=== PATIENT | female | born 1955 | race Caucasian/White ===

== ENCOUNTER 2016-08-05 07:02 | Inpatient (IN) | payer OTHER ==
[~2016-08-05] VITALS: Ht 162.6 cm; Wt 51.7 kg
[~2016-08-05 07:02] MED LIST: CYCL-10 PO; D-AM10TA2 PO; DONE10TA44 PO; ESTR0.623 PO; HYDR-914 PO; LISI-209 PO; OXYB5TAB11 PO; PROM25TA15 PO; TIZA4TAB4 PO; VAL2 PO; VENL100T2 PO; VENL100T4 PO
[2016-08-05 07:15] VITALS: BP_SYST 127
[2016-08-05] MEDS ORDERED: ONDANSETRON HCL 4 MG/2 ML VIAL IVP ONE (07:45)
[2016-08-05] MEDS ORDERED: MORPHINE 4 MG/ML INJ. SYRINGE IVP ONE (07:45)
[2016-08-05 08:09] LABS: MONOCYTES # (AUTO) 0.4 K/uL (0.0-1.0)
[2016-08-05 08:12] LABS: BASOPHILS % (AUTO) 0.6 % (0.0-2.0); EOSINOPHILS # (AUTO) 0.2 K/uL (0.0-0.4); EOSINOPHILS % (AUTO) 1.9 % (0.0-4.0); HEMATOCRIT 37.8 % (36-48); HEMOGLOBIN 12.4 g/dL (12.0-16.0); LYMPHOCYTES # (AUTO) 2.8 K/uL (1.0-5.5); LYMPHOCYTES % (AUTO) 35.3 % (20.5-51.5); MEAN CORPUSCULAR HEMOGLOBIN 27 pg (27-31); MEAN CORPUSCULAR HGB CONC 33 % (32-36); MEAN CORPUSCULAR VOLUME 82 fL (79.0-98.0); MONOCYTES % (AUTO) 5.3 % (1.7-9.3); NEUTROPHILS # (AUTO) 4.5 K/uL (1.8-7.7); NEUTROPHILS % (AUTO) 56.9 % (40.0-70.0); PLATELET COUNT (AUTO) 362 K/uL (130-430); RED BLOOD CELL COUNT(AUTO) 4.63 MIL/uL (4.2-6.2); RED CELL DISTRIBUTION WIDTH 15.6 % (9.0-15.0); WHITE BLOOD COUNT (AUTO) 7.9 K/uL (4.8-10.8)
[2016-08-05 08:14] LABS: CALCIUM 9.3 mg/dL (8.4-11.0); CREATININE 0.77 mg/dL (0.55-1.30); POTASSIUM 3.8 mmol/L (3.5-5.1)
[2016-08-05 08:53] LABS: BILIRUBIN,URINE NEGATIVE (NEGATIVE); BLOOD, URINE NEGATIVE (NEGATIVE); CLARITY/URINE SL CLOUDY (CLEAR); COLOR,URINE YELLOW (YELLOW); GLUCOSE,URINE NEGATIVE (NEGATIVE); KETONES,URINE NEGATIVE (NEGATIVE); LEUKOCYTE ESTERASE ,URINE 2+ (NEGATIVE); NITRITE, URINE POSITIVE (NEGATIVE); PROTEIN URINE TRACE (NEGATIVE); UROBILINOGEN,URINE 0.2 (0.2-1.0)
[2016-08-05] MEDS ORDERED: cefTRIAXone 1 GM IVPB PREMIX 50 ML IV ONE (09:00)
[2016-08-05 09:10] LABS: BACTERIA,URINE MANY /HPF (None Seen); RBC,URINE 0-3 /HPF (0-3); WBC,URINE 20-50 /HPF (0-3)
[2016-08-05] MEDS ORDERED: LEVOFLOXACIN 500 MG/D5W 100 ML IV ONE (10:45)
[2016-08-05] MEDS ORDERED: PIPERACILLIN/TAZO 4.5 GM in NS 100 ML IV ONE (11:15)
[2016-08-05 12:22] VITALS: BP_SYST 119
[2016-08-05] MEDS: PIPERACILLIN/TAZO 4.5GM/DEX-IS 100 ML IV SCH ×2 (14:52→21:49)
[2016-08-05] MEDS: HYDROmorphone 2 MG/ML VIAL IVP PRN ×2 (14:52→20:12)
[2016-08-05] MEDS ORDERED: OXYBUTYNIN CHLORIDE 5 MG TABLET PO SCH (15:00)
[2016-08-05] MEDS: VANCOMYCIN HCL 750 MG in NS 250 ML IV SCH (15:51)
[2016-08-05] MEDS: CYCLOBENZAPRINE HCL 10 MG TABLET (FLEXERIL) PO SCH ×2 (16:05→21:48)
[2016-08-05 16:24] VITALS: BP_SYST 125
[2016-08-06] MEDS: HYDROmorphone 2 MG/ML VIAL IVP PRN ×4 (00:31→19:51)
[2016-08-06 01:51] VITALS: BP_SYST 140
[2016-08-06] MEDS: VANCOMYCIN HCL 750 MG in NS 250 ML IV SCH ×2 (04:00→16:11)
[2016-08-06] MEDS: PIPERACILLIN/TAZO 4.5GM/DEX-IS 100 ML IV SCH ×2 (05:48→14:58)
[2016-08-06 06:42] VITALS: BP_SYST 131
[2016-08-06 06:54] LABS: BASOPHILS % (AUTO) 0.6 % (0.0-2.0); EOSINOPHILS # (AUTO) 0.2 K/uL (0.0-0.4); EOSINOPHILS % (AUTO) 3.8 % (0.0-4.0); HEMATOCRIT 33.3 % (36-48); HEMOGLOBIN 10.7 g/dL (12.0-16.0); LYMPHOCYTES # (AUTO) 2.4 K/uL (1.0-5.5); LYMPHOCYTES % (AUTO) 42.1 % (20.5-51.5); MEAN CORPUSCULAR HEMOGLOBIN 27 pg (27-31); MEAN CORPUSCULAR HGB CONC 32 % (32-36); MEAN CORPUSCULAR VOLUME 83 fL (79.0-98.0); MONOCYTES # (AUTO) 0.4 K/uL (0.0-1.0); MONOCYTES % (AUTO) 6.9 % (1.7-9.3); NEUTROPHILS # (AUTO) 2.6 K/uL (1.8-7.7); NEUTROPHILS % (AUTO) 46.6 % (40.0-70.0); PLATELET COUNT (AUTO) 266 K/uL (130-430); RED BLOOD CELL COUNT(AUTO) 4.03 MIL/uL (4.2-6.2); RED CELL DISTRIBUTION WIDTH 15.4 % (9.0-15.0); WHITE BLOOD COUNT (AUTO) 5.6 K/uL (4.8-10.8)
[2016-08-06 07:16] LABS: ALBUMIN 3.2 g/dL (3.4-4.8); CALCIUM 8.7 mg/dL (8.4-11.0); CREATININE 0.83 mg/dL (0.55-1.30); POTASSIUM 4.3 mmol/L (3.5-5.1); TOTAL BILIRUBIN 0.3 mg/dL (0.0-1.0); TOTAL PROTEIN, SERUM 6.6 g/dL (6.4-8.3)
[2016-08-06 08:00] VITALS: BP_SYST 127
[2016-08-06] MEDS: CYCLOBENZAPRINE HCL 10 MG TABLET (FLEXERIL) PO SCH (08:10)
[2016-08-06] MEDS ORDERED: DONEPEZIL HCL 5 MG TABLET (ARICEPT) PO SCH (09:00)
[2016-08-06] MEDS ORDERED: [UNRECOGNIZED DRUG - OTHER] PO SCH (09:00)
[2016-08-06] MEDS ORDERED: DEXTROAMPHETAMINE SULFATE PO SCH (09:00)
[2016-08-06] MEDS ORDERED: SENNOSIDES 8.6 MG TABLET PO ONE ×2 (09:15→21:00)
[2016-08-06] MEDS: oxyCODONE HCL 10 MG TAB.ER.12H PO SCH ×2 (10:05→20:29)
[2016-08-06] MEDS: DOCUSATE SODIUM 100 MG CAPSULE PO SCH ×2 (10:05→20:29)
[2016-08-06] MEDS: CARISOPRODOL 350 MG TABLET PO SCH ×3 (10:06→20:29)
[2016-08-06] MEDS: ESTROGENS,CONJUGATED 0.625 MG TABLET PO SCH (10:06)
[2016-08-06] MEDS ORDERED: CEFEPIME 1 GM in D5W 50 ML IV ONE (17:00)
[2016-08-06 17:51] LABS: PROTHROMBIN TIME 11.1 SECS (9.5-12.5)
[2016-08-06 19:50] VITALS: BP_SYST 112
[2016-08-07 01:28] VITALS: BP_SYST 106
[2016-08-07] MEDS: VANCOMYCIN HCL 750 MG in NS 250 ML IV SCH ×2 (02:22→16:08)
[2016-08-07 03:46] VITALS: BP_SYST 111
[2016-08-07] MEDS: HYDROmorphone 2 MG/ML VIAL IVP PRN ×2 (06:10→11:18)
[2016-08-07 07:49] LABS: BASOPHILS % (AUTO) 0.5 % (0.0-2.0); EOSINOPHILS # (AUTO) 0.2 K/uL (0.0-0.4); EOSINOPHILS % (AUTO) 2.8 % (0.0-4.0); HEMOGLOBIN 10.9 g/dL (12.0-16.0); LYMPHOCYTES # (AUTO) 2.8 K/uL (1.0-5.5); LYMPHOCYTES % (AUTO) 34.6 % (20.5-51.5); MEAN CORPUSCULAR HEMOGLOBIN 27 pg (27-31); MEAN CORPUSCULAR HGB CONC 32 % (32-36); MEAN CORPUSCULAR VOLUME 83 fL (79.0-98.0); MONOCYTES # (AUTO) 0.4 K/uL (0.0-1.0); MONOCYTES % (AUTO) 5.5 % (1.7-9.3); NEUTROPHILS # (AUTO) 4.7 K/uL (1.8-7.7); NEUTROPHILS % (AUTO) 56.6 % (40.0-70.0); PLATELET COUNT (AUTO) 282 K/uL (130-430); RED BLOOD CELL COUNT(AUTO) 4.09 MIL/uL (4.2-6.2); RED CELL DISTRIBUTION WIDTH 15.3 % (9.0-15.0); WHITE BLOOD COUNT (AUTO) 8.1 K/uL (4.8-10.8)
[2016-08-07 08:04] LABS: ALBUMIN 3.1 g/dL (3.4-4.8); CALCIUM 8.5 mg/dL (8.4-11.0); CREATININE 0.71 mg/dL (0.55-1.30); POTASSIUM 4.1 mmol/L (3.5-5.1); TOTAL BILIRUBIN 0.2 mg/dL (0.0-1.0); TOTAL PROTEIN, SERUM 6.5 g/dL (6.4-8.3)
[2016-08-07] MEDS: CEFEPIME 1 GM in D5W 50 ML IV SCH ×2 (08:25→21:57)
[2016-08-07] MEDS: oxyCODONE HCL 10 MG TAB.ER.12H PO SCH ×2 (08:26→21:57)
[2016-08-07] MEDS: CARISOPRODOL 350 MG TABLET PO SCH ×3 (08:27→21:57)
[2016-08-07] MEDS: ESTROGENS,CONJUGATED 0.625 MG TABLET PO SCH (08:27)
[2016-08-07] MEDS: DOCUSATE SODIUM 100 MG CAPSULE PO SCH ×2 (08:27→21:57)
[2016-08-07 12:38] VITALS: BP_SYST 123
[2016-08-07 16:55] VITALS: BP_SYST 125
[2016-08-07 20:00] VITALS: BP_SYST 122
[2016-08-08 01:22] VITALS: BP_SYST 150
[2016-08-08] MEDS: VANCOMYCIN HCL 750 MG in NS 250 ML IV SCH ×2 (02:43→15:59)
[2016-08-08 03:49] VITALS: BP_SYST 130
[2016-08-08] MEDS: HYDROmorphone 2 MG/ML VIAL IVP PRN ×4 (07:04→20:14)
[2016-08-08 08:00] VITALS: BP_SYST 130
[2016-08-08] MEDS: CEFEPIME 1 GM in D5W 50 ML IV SCH ×2 (08:56→21:11)
[2016-08-08] MEDS: ESTROGENS,CONJUGATED 0.625 MG TABLET PO SCH (08:56)
[2016-08-08] MEDS: CARISOPRODOL 350 MG TABLET PO SCH ×3 (08:56→21:11)
[2016-08-08] MEDS: DOCUSATE SODIUM 100 MG CAPSULE PO SCH ×2 (08:56→21:11)
[2016-08-08] MEDS: oxyCODONE HCL 10 MG TAB.ER.12H PO SCH ×2 (08:57→21:11)
[2016-08-08 12:30] VITALS: BP_SYST 128
[2016-08-08 16:00] VITALS: BP_SYST 132
[2016-08-08 20:00] VITALS: BP_SYST 135
[2016-08-09 00:22] VITALS: BP_SYST 126
[2016-08-09] MEDS: VANCOMYCIN HCL 750 MG in NS 250 ML IV SCH ×2 (03:06→15:31)
[2016-08-09] MEDS: HYDROmorphone 2 MG/ML VIAL IVP PRN ×4 (03:32→17:54)
[2016-08-09 04:21] VITALS: BP_SYST 127
[2016-08-09 08:00] VITALS: BP_SYST 125
[2016-08-09] MEDS: CEFEPIME 1 GM in D5W 50 ML IV SCH (09:30)
[2016-08-09] MEDS: CARISOPRODOL 350 MG TABLET PO SCH ×2 (09:30→15:30)
[2016-08-09] MEDS: oxyCODONE HCL 10 MG TAB.ER.12H PO SCH (09:31)
[2016-08-09] MEDS: DOCUSATE SODIUM 100 MG CAPSULE PO SCH (09:31)
[2016-08-09] MEDS: ESTROGENS,CONJUGATED 0.625 MG TABLET PO SCH (09:32)
[2016-08-09 12:46] VITALS: BP_SYST 125
[2016-08-09 16:01] VITALS: BP_SYST 132
[2016-08-09 19:53] VITALS: BP_SYST 144
== END 2016-08-09 21:48 | DRG 560 ==
LOC: SED 07:02 → SMU 11:27
PROVIDERS: ADMIT Internal Medicine; ATTEND Internal Medicine
PROC: 02HV33Z Insertion of Infusion Device into Superior Vena Cava, Percutaneous Approach (ICD-10-PCS; principal; 2016-08-07)
PROC: B548ZZA Ultrasonography of Superior Vena Cava, Guidance (ICD-10-PCS; 2016-08-07)
DX: T84.629A Infection and inflammatory reaction due to internal fixation device of unspecified bone of leg, initial encounter (principal); M86.8X7 Other osteomyelitis, ankle and foot; N39.0 Urinary tract infection, site not specified; L03.116 Cellulitis of left lower limb; G82.20 Paraplegia, unspecified; T83.511A Infection and inflammatory reaction due to indwelling urethral catheter, initial encounter; G35 Multiple sclerosis; L89.152 Pressure ulcer of sacral region, stage 2; F32.9 Major depressive disorder, single episode, unspecified; N31.9 Neuromuscular dysfunction of bladder, unspecified; L89.319 Pressure ulcer of right buttock, unspecified stage; M19.90 Unspecified osteoarthritis, unspecified site; Y83.8 Other surgical procedures as the cause of abnormal reaction of the patient, or of later complication, without mention of misadventure at the time of the procedure; G89.4 Chronic pain syndrome; F12.90 Cannabis use, unspecified, uncomplicated; Z80.1 Family history of malignant neoplasm of trachea, bronchus and lung; Z91.013 Allergy to seafood; Z74.01 Bed confinement status; Z99.3 Dependence on wheelchair; Z79.899 Other long term (current) drug therapy; Z87.891 Personal history of nicotine dependence; Z86.14 Personal history of Methicillin resistant Staphylococcus aureus infection; Y92.89 Other specified places as the place of occurrence of the external cause
CPT/HCPCS: 36415; 71010; 80048; 80053; 80202-TC; 81000-TC; 83605; 83735-TC; 85025; 85610-TC; 85651-TC; 85730-TC; 86140; 87040-TC; 87081; 87086; 87186-TC; 96365; 96367; 96375; 99285; A6209; C1751; C1769; J0692; J0696; J1170; J1956; J2270; J2405; J2543; J3370; J7050; J7060

== ENCOUNTER 2016-08-21 15:18 | Emergency (ER) | payer OTHER ==
[~2016-08-21] VITALS: Ht 162.6 cm; Wt 52.2 kg
[~2016-08-21 15:18] MED LIST changes: -DONE10TA44 PO; -LISI-209 PO; -PROM25TA15 PO; -TIZA4TAB4 PO; -VAL2 PO; -VENL100T2 PO; -VENL100T4 PO
[2016-08-21 15:22] VITALS: BP_SYST 152
--- NOTE | 2016-08-21 15:30 | NUR ---
Patient to ER bed 08 to gown for evaluation. Side rails up.
--- NOTE | 2016-08-21 15:31 | NUR ---
Stable, pt states has had "urethra pain" and pain to rectal area since this AM, states had suh catheter removed yesterday, denies any bleeding to area, denies pain w/ urination, urinary frequency/retention or blood in stool. Pt states had toe surgery "months ago", many black wounds & redness noted to bilateral feet/toes, left middle toe has stitches and pin sticking out of end,site not well approximated-open area noted w/ dried blood, no active bleeding. Pt states has missed many follow up appts, had appt today. No other complaints/injuries per pt or noted.
--- NOTE | 2016-08-21 16:05 | NUR ---
Dr. Johnson at bedside for evaluation with female Vernon Rosen
--- NOTE | 2016-08-21 16:15 | NUR ---
Rectal exam performed by Dr. Johnson with self at bedside during procedure. Patient tolerated well. Dr. Johnson removed large amount of light brown formed stool by digital disimpaction-no blood noted. Pt states pain significantly decreased following disimpaction. Addendum: 08/21/16 at [address] Johnson also examined pt's genitalia-slight redness noted, no bleeding/drainage.
--- NOTE | 2016-08-21 16:56 | NUR ---
In and Out catheter with use of sterile technique performed. Immediate return of 100 ml clear yellow urine noted. Urine sample collected and sent to lab. Pt tolerated procedure well.
[2016-08-21 17:44] LABS: BILIRUBIN,URINE NEGATIVE (NEGATIVE); BLOOD, URINE NEGATIVE (NEGATIVE); CLARITY/URINE CLEAR (CLEAR); COLOR,URINE YELLOW (YELLOW); GLUCOSE,URINE NEGATIVE (NEGATIVE); KETONES,URINE TRACE (NEGATIVE); LEUKOCYTE ESTERASE ,URINE NEGATIVE (NEGATIVE); NITRITE, URINE NEGATIVE (NEGATIVE); PROTEIN URINE NEGATIVE (NEGATIVE); UROBILINOGEN,URINE 0.2 (0.2-1.0)
--- NOTE | 2016-08-21 17:45 | NUR ---
# 16 FR Coello catheter with use of sterile technique performed. Immediate return of 550 cc clear yellow urine noted (Dr. Johnson notified). Bedside drainage bag placed below level of bladder. Pt tolerated procedure well-states feels some immediate relief.
[2016-08-21] MEDS ORDERED: NACL 0.9% 1,000 ML IV ONE (17:51)
[2016-08-21] MEDS ORDERED: HYDROmorphone 1 MG INJ. 1 MG/ML AMPUL IVP ONE (18:00)
[2016-08-21] MEDS ORDERED: MORPHINE 4 MG/ML INJ. SYRINGE IVP ONE (18:00)
[2016-08-21] MEDS ORDERED: LORazepam 2 MG/ML VIAL (FOR ER USE) IVP ONE (18:00)
[2016-08-21] MEDS ORDERED: ONDANSETRON HCL 4 MG/2 ML VIAL IVP ONE (18:00)
--- NOTE | 2016-08-21 18:00 | NUR ---
Pt states is not allergic to iodine-has had before w/o complications. Dr. Johnson aware of pt's seafood allergy and situation-to speak w/ radiologist.
[2016-08-21 18:35] LABS: BASOPHILS % (AUTO) 0.2 % (0.0-2.0); EOSINOPHILS % (AUTO) 0.1 % (0.0-4.0); HEMATOCRIT 35.3 % (36-48); HEMOGLOBIN 11.5 g/dL (12.0-16.0); LYMPHOCYTES # (AUTO) 1.5 K/uL (1.0-5.5); LYMPHOCYTES % (AUTO) 13.7 % (20.5-51.5); MEAN CORPUSCULAR HEMOGLOBIN 27 pg (27-31); MEAN CORPUSCULAR HGB CONC 33 % (32-36); MEAN CORPUSCULAR VOLUME 82 fL (79.0-98.0); MONOCYTES # (AUTO) 0.5 K/uL (0.0-1.0); MONOCYTES % (AUTO) 4.7 % (1.7-9.3); NEUTROPHILS # (AUTO) 9.3 K/uL (1.8-7.7); NEUTROPHILS % (AUTO) 81.3 % (40.0-70.0); PLATELET COUNT (AUTO) 290 K/uL (130-430); RED BLOOD CELL COUNT(AUTO) 4.29 MIL/uL (4.2-6.2); RED CELL DISTRIBUTION WIDTH 14.9 % (9.0-15.0); WHITE BLOOD COUNT (AUTO) 11.3 K/uL (4.8-10.8)
[2016-08-21 18:40] LABS: CREATININE 0.62 mg/dL (0.55-1.30); POTASSIUM 3.6 mmol/L (3.5-5.1)
[2016-08-21 18:44] LABS: ALBUMIN 3.6 g/dL (3.4-4.8); TOTAL BILIRUBIN 0.4 mg/dL (0.0-1.0); TOTAL PROTEIN, SERUM 7.5 g/dL (6.4-8.3)
--- NOTE | 2016-08-21 19:00 | NUR ---
Pt stable, alert and oriented x4, states is still having pain following medication admin (takes morphine 8 mg and dilaudid 4mg daily at home)-Dr. Johnson aware.
[2016-08-21] MEDS ORDERED: IOHEXOL 100 ML IV ONE (19:15)
--- NOTE | 2016-08-21 19:26 | NUR ---
Pt was taken for CT via [facility].
--- NOTE | 2016-08-21 19:42 | NUR ---
Pt was in room. Pt had no reaction to iodine.
--- NOTE | 2016-08-21 21:20 | NUR ---
Called daughter [phone] misti pt's discharge home
--- NOTE | 2016-08-21 21:32 | NUR ---
called Brad dang to clarify . spoke to rose DESAI, stated that pt had sign off AMA yesterday 08/20/16 at 8476.
[2016-08-22 00:20] VITALS: BP_SYST 125
--- NOTE | 2016-08-22 00:20 | NUR ---
Patient given written and verbal discharge instructions and verbalizes understanding. ER MD discussed with patient the results and treatment provided. Patient in stable condition. ID arm band removed. IV catheter removed intact and dressing applied, no active bleeding. Rx of lactulose, norco and keflex given. Patient educated on pain management and to follow up with PMD. Pain Scale 0/10. Opportunity for questions provided and answered.
== END 2016-08-22 00:20 | disposition home or self-care (01) ==
LOC: SED 15:18
DX: K56.41 Fecal impaction (principal); R10.9 Unspecified abdominal pain; N36.8 Other specified disorders of urethra; I10 Essential (primary) hypertension; Z86.73 Personal history of transient ischemic attack (TIA), and cerebral infarction without residual deficits; Z90.710 Acquired absence of both cervix and uterus; Z91.013 Allergy to seafood; Z89.422 Acquired absence of other left toe(s)
CPT/HCPCS: 36415; 51702; 74176; 80053; 81003; 81025; 83690; 85025; 96361; 96374; 96375; 99285; J1170; J2060; J2270; J2405; J7030; Q9967

== ENCOUNTER 2016-08-22 21:15 | Emergency (ER) | payer OTHER ==
[~2016-08-22] VITALS: Ht 162.6 cm; Wt 49.9 kg
[2016-08-22 21:17] VITALS: BP_SYST 131
[2016-08-22] MEDS ORDERED: DIPHENHYDRAMINE INJ 50 MG/ML VIAL IM ONE (22:45)
[2016-08-22] MEDS ORDERED: MORPHINE SULFATE 10 MG/ML VIAL IM ONE (22:45)
[2016-08-23] MEDS ORDERED: MORPHINE 4 MG/ML INJ. SYRINGE IM ONE (00:30)
[2016-08-23] MEDS ORDERED: DIPHENHYDRAMINE INJ 50 MG/ML VIAL IM ONE (00:30)
[2016-08-23 02:00] VITALS: BP_SYST 128
== END 2016-08-23 02:00 | disposition home or self-care (01) ==
LOC: SED 21:15
DX: S43.401A Unspecified sprain of right shoulder joint, initial encounter (principal); I10 Essential (primary) hypertension; Z91.013 Allergy to seafood; Z86.73 Personal history of transient ischemic attack (TIA), and cerebral infarction without residual deficits; W05.0XXA Fall from non-moving wheelchair, initial encounter; Y93.89 Activity, other specified; Y92.89 Other specified places as the place of occurrence of the external cause; Y99.8 Other external cause status
CPT/HCPCS: 73030; 96372; 96374; 99284; J1200 ×2; J2270 ×2

== ENCOUNTER 2016-08-23 20:21 | Emergency (ER) | payer OTHER ==
[~2016-08-23] VITALS: Ht 165.1 cm; Wt 49.9 kg
[2016-08-23 20:21] VITALS: BP_SYST 150
--- NOTE | 2016-08-23 20:33 | NUR ---
Placed in room 02 . Placed on cardiac exercise physiologist, blood pressure machine and pulse oximeter. To gown for exam. Side rails up. Report given to GISELLE Smallwood.
[2016-08-23] MEDS ORDERED: NACL 0.9% 1,000 ML IV ONE (20:43)
[2016-08-23] MEDS ORDERED: PROCHLORPERAZINE EDISYLATE 10 MG/2 ML VIAL IVP ONE (20:45)
--- NOTE | 2016-08-23 20:45 | NUR ---
Patient is A & O x 4, Skin is warm, dry and intact. Patient reports diffuse abdominal pain for 2 days with constipation. Pain of 7/10. No other complaints/injuries per patient or as noted
--- NOTE | 2016-08-23 20:47 | NUR ---
Dr. Melvin at bedside
[2016-08-23 21:05] LABS: BASOPHILS # (AUTO) 0.1 K/uL (0.0-0.2); BASOPHILS % (AUTO) 0.7 % (0.0-2.0); EOSINOPHILS % (AUTO) 0.5 % (0.0-4.0); HEMATOCRIT 37.5 % (36-48); HEMOGLOBIN 12.4 g/dL (12.0-16.0); LYMPHOCYTES # (AUTO) 1.9 K/uL (1.0-5.5); LYMPHOCYTES % (AUTO) 21.5 % (20.5-51.5); MEAN CORPUSCULAR HEMOGLOBIN 27 pg (27-31); MEAN CORPUSCULAR HGB CONC 33 % (32-36); MEAN CORPUSCULAR VOLUME 82 fL (79.0-98.0); MONOCYTES # (AUTO) 0.5 K/uL (0.0-1.0); MONOCYTES % (AUTO) 5.2 % (1.7-9.3); NEUTROPHILS # (AUTO) 6.2 K/uL (1.8-7.7); NEUTROPHILS % (AUTO) 72.1 % (40.0-70.0); PLATELET COUNT (AUTO) 324 K/uL (130-430); RED CELL DISTRIBUTION WIDTH 14.4 % (9.0-15.0); WHITE BLOOD COUNT (AUTO) 8.7 K/uL (4.8-10.8)
[2016-08-23 21:12] LABS: PROTHROMBIN TIME 11.2 SECS (9.5-12.5)
--- NOTE | 2016-08-23 21:14 | NUR ---
Patient medicated as ordered, IVF infusing without difficulty. classroom monitor shows sinus rhythm without ectopy
[2016-08-23 21:16] LABS: CREATININE 0.59 mg/dL (0.55-1.30); POTASSIUM 3.7 mmol/L (3.5-5.1)
[2016-08-23 21:21] LABS: ALBUMIN 3.7 g/dL (3.4-4.8); TOTAL BILIRUBIN 0.3 mg/dL (0.0-1.0); TOTAL PROTEIN, SERUM 7.4 g/dL (6.4-8.3)
--- NOTE | 2016-08-23 21:50 | NUR ---
Patient to CT scan in stable condition
--- NOTE | 2016-08-23 22:01 | NUR ---
Patient back from CT scan
[2016-08-23] MEDS ORDERED: LORazepam 2 MG/ML VIAL (FOR ER USE) IVP ONE (23:30)
[2016-08-23] MEDS ORDERED: cloNIDine HCL 0.1 MG TABLET PO ONE (23:45)
--- NOTE | 2016-08-23 23:57 | NUR ---
Ativan did not scan. Verified medication, dosage, and route with full name, date of and allergies. Patient tolerated well.
[2016-08-24] LABS: BILIRUBIN,URINE NEGATIVE (NEGATIVE); BLOOD, URINE NEGATIVE (NEGATIVE); CLARITY/URINE CLEAR (CLEAR); COLOR,URINE YELLOW (YELLOW); GLUCOSE,URINE NEGATIVE (NEGATIVE); KETONES,URINE 2+ (NEGATIVE); LEUKOCYTE ESTERASE ,URINE NEGATIVE (NEGATIVE); NITRITE, URINE NEGATIVE (NEGATIVE); PROTEIN URINE NEGATIVE (NEGATIVE); UROBILINOGEN,URINE 0.2 (0.2-1.0)
[2016-08-24] MEDS ORDERED: KETOROLAC TROMETHAMINE 30 MG VIAL IVP ONE (00:30)
--- NOTE | 2016-08-24 01:58 | NUR ---
Patient resting quietly in nad, vital signs stable, respirations even and unlabored
[2016-08-24 02:46] VITALS: BP_SYST 150
--- NOTE | 2016-08-24 02:48 | NUR ---
Patient given written and verbal discharge instructions and verbalizes understanding. ER MD discussed with patient the results and treatment provided. Patient in stable condition. ID arm band removed. IV catheter removed intact and dressing applied, no active bleeding. No RX given. Patient educated on pain management and to follow up with PMD. Pain Scale 0. Opportunity for questions provided and answered.
== END 2016-08-24 02:48 | disposition home or self-care (01) ==
LOC: SED 20:21
DX: G89.29 Other chronic pain (principal); R10.9 Unspecified abdominal pain; M79.605 Pain in left leg; M79.675 Pain in left toe(s); M54.9 Dorsalgia, unspecified; F11.20 Opioid dependence, uncomplicated; I10 Essential (primary) hypertension; Z86.73 Personal history of transient ischemic attack (TIA), and cerebral infarction without residual deficits; Z91.013 Allergy to seafood
CPT/HCPCS: 36415; 74176; 80053; 81003; 83690; 85025; 85610; 85730; 96361; 96374; 96375; 99285; J0780; J1885; J2060; J7030

== ENCOUNTER 2016-12-13 13:53 | Inpatient (IN) | payer OTHER ==
[~2016-12-13] VITALS: Ht 157.5 cm; Wt 52.2 kg
[2016-12-13] VITALS (13 sets, daily range): BP systolic 106–164
[2016-12-13] MEDS ORDERED: NALOXONE HCL 2 MG/2 ML SYR IVP ONE (14:00)
[2016-12-13 14:13] LABS: BASOPHILS # (AUTO) 0.1 K/uL (0.0-0.2); BASOPHILS % (AUTO) 1.1 % (0.0-2.0); EOSINOPHILS # (AUTO) 0.2 K/uL (0.0-0.4); EOSINOPHILS % (AUTO) 2.1 % (0.0-4.0); HEMATOCRIT 38.8 % (36-48); HEMOGLOBIN 12.3 g/dL (12.0-16.0); LYMPHOCYTES # (AUTO) 1.7 K/uL (1.0-5.5); MEAN CORPUSCULAR HEMOGLOBIN 26 pg (27-31); MEAN CORPUSCULAR HGB CONC 32 % (32-36); MEAN CORPUSCULAR VOLUME 82 fL (79.0-98.0); MONOCYTES # (AUTO) 0.3 K/uL (0.0-1.0); MONOCYTES % (AUTO) 2.9 % (1.7-9.3); NEUTROPHILS # (AUTO) 7.4 K/uL (1.8-7.7); NEUTROPHILS % (AUTO) 75.9 % (40.0-70.0); PLATELET COUNT (AUTO) 477 K/uL (130-430); RED BLOOD CELL COUNT(AUTO) 4.76 MIL/uL (4.2-6.2); RED CELL DISTRIBUTION WIDTH 16.1 % (9.0-15.0); WHITE BLOOD COUNT (AUTO) 9.7 K/uL (4.8-10.8)
[2016-12-13] MEDS ORDERED: GABA-529 PO (14:29)
[2016-12-13] MEDS ORDERED: BUPR-84 PO (14:29)
[2016-12-13] MEDS ORDERED: CEPH-568 PO (14:29)
[2016-12-13] MEDS ORDERED: BACL10TA PO (14:29)
[2016-12-13] MEDS ORDERED: POTASSIUM ER PO (14:29)
[2016-12-13] MEDS ORDERED: DONE5TAB26 PO (14:29)
[2016-12-13 14:31] LABS: ANION GAP 9 (5-15); CALCIUM 8.9 mg/dL (8.4-11.0); CHLORIDE 105 mmol/L (98-107); CREATININE 0.59 mg/dL (0.55-1.30); GLUCOSE 185 mg/dL (70-99); POTASSIUM 3.5 mmol/L (3.5-5.1); SODIUM SERUM 139 mmol/L (136-145); UREA NITROGEN, BLOOD 11 mg/dL (8-21)
[2016-12-13 14:32] LABS: GFR AFRICAN AMERICAN 133 mL/min (>90)
[2016-12-13 14:33] LABS: PROTHROMBIN TIME 9.8 SECS (9.5-12.5)
[2016-12-13 14:36] LABS: ALANINE AMINOTRANSFERASE 14 U/L (12-78); ALBUMIN 3.5 g/dL (3.4-4.8); ASPARTATE AMINOTRANSFERASE 19 U/L (10-37); TOTAL BILIRUBIN 0.2 mg/dL (0.0-1.0)
[2016-12-13 14:38] LABS: ACETAMINOPHEN 7 ug/mL (1-30); ALCOHOL, BLOOD < 3 mg/dL (<10)
[2016-12-13 15:12] LABS: BILIRUBIN,URINE NEGATIVE (NEGATIVE); BLOOD, URINE 1+ (NEGATIVE); CLARITY/URINE HAZY (CLEAR); COLOR,URINE YELLOW (YELLOW); GLUCOSE,URINE NEGATIVE (NEGATIVE); KETONES,URINE NEGATIVE (NEGATIVE); LEUKOCYTE ESTERASE ,URINE 3+ (NEGATIVE); NITRITE, URINE POSITIVE (NEGATIVE); PH,URINE 7.5 (5.0-8.0); PROTEIN URINE 1+ (NEGATIVE); UROBILINOGEN,URINE 0.2 (0.2-1.0)
[2016-12-13 15:23] LABS: BACTERIA,URINE MANY /HPF (None Seen); WBC,URINE >100 /HPF (0-3)
[2016-12-13 15:27] LABS: URINE AMORPHOUS PHOSPHATES 2+ /HPF (None Seen)
[2016-12-13 15:30] LABS: CANNABINOID, URINE POSITIVE (NEG <=50); METHAMPHETAMINES SCREEN,URINE POSITIVE (NEG <=500); OPIATE, URINE POSITIVE (NEG <=100); URINE AMPHETAMINE POSITIVE (NEG <=500); URINE OXYCODONE SCREEN POSITIVE (NEG <=100)
[2016-12-13] MEDS ORDERED: ETOMIDATE 20 MG/ 10 ML VIAL (AMIDATE) IVP ONE ×2 (15:30→17:22)
[2016-12-13] MEDS ORDERED: SUCCINYLCHOLINE CHLORIDE 20 MG/ML(QUELICIN) IVP ONE ×2 (15:30→17:22)
[2016-12-13 15:31] LABS: BARBITURATE, URINE NEGATIVE (NEG <=200); BENZODIAZEPINE, URINE NEGATIVE (NEG <=150); COCAINE, URINE NEGATIVE (NEG <=150); PHENCYCLIDINE SCREEN,URINE NEGATIVE (NEG <=25); UR TRICYCLIC ANTIDEPRESSANTS NEGATIVE (NEG <=300); URINE METHADONE NEGATIVE (NEG <=200); URINE PROPOXYPHENE SCREEN NEGATIVE (NEG <=300)
[2016-12-13] MEDS ORDERED: cefTRIAXone 1 GM IVPB PREMIX 50 ML IV ONE (15:45)
[2016-12-13] MEDS ORDERED: LORazepam 2 MG/ML VIAL IVP PRN (17:30)
[2016-12-13] MEDS ORDERED: IPRATROPIUM BROM 0.5 MG/2.5 ML VIAL.NEB (ATROVENT) INH PRN (17:30)
[2016-12-13] MEDS ORDERED: ALBUTEROL SULFATE 0.083% 2.5 MG/3 ML VIAL.NEB INH PRN (17:30)
[2016-12-13] MEDS ORDERED: cefTRIAXone 1 GM in D5W 50 ML IV SCH (17:45)
[2016-12-13] MEDS: LORazepam 2 MG/ML VIAL IVP PRN ×2 (18:00→22:25)
[2016-12-13] MEDS: IPRATROPIUM BROM 0.5 MG/2.5 ML VIAL.NEB (ATROVENT) INH SCH (20:01)
[2016-12-13] MEDS: ALBUTEROL SULFATE 0.083% 2.5 MG/3 ML VIAL.NEB INH SCH (20:02)
[2016-12-13] MEDS: FAMOTIDINE PF 20 MG/2 ML VIAL IVP SCH (20:48)
[2016-12-14] VITALS (34 sets, daily range): BP systolic 87–147
[2016-12-14] MEDS: IPRATROPIUM BROM 0.5 MG/2.5 ML VIAL.NEB (ATROVENT) INH SCH ×4 (01:25→19:37)
[2016-12-14] MEDS: ALBUTEROL SULFATE 0.083% 2.5 MG/3 ML VIAL.NEB INH SCH ×4 (01:25→19:37)
[2016-12-14] MEDS: D5/0.45 NS 1,000 ML IV SCH ×3 (04:53→16:28)
[2016-12-14] MEDS: NITROGLYCERIN 1 INCH (GM) OINT. TP SCH ×4 (06:09→18:44)
[2016-12-14 06:43] LABS: BASOPHILS # (AUTO) 0.1 K/uL (0.0-0.2); BASOPHILS % (AUTO) 0.6 % (0.0-2.0); EOSINOPHILS # (AUTO) 0.1 K/uL (0.0-0.4); EOSINOPHILS % (AUTO) 0.6 % (0.0-4.0); HEMATOCRIT 41.1 % (36-48); LYMPHOCYTES # (AUTO) 1.7 K/uL (1.0-5.5); LYMPHOCYTES % (AUTO) 13.6 % (20.5-51.5); MEAN CORPUSCULAR HEMOGLOBIN 26 pg (27-31); MEAN CORPUSCULAR HGB CONC 32 % (32-36); MEAN CORPUSCULAR VOLUME 82 fL (79.0-98.0); MONOCYTES # (AUTO) 0.2 K/uL (0.0-1.0); MONOCYTES % (AUTO) 1.6 % (1.7-9.3); NEUTROPHILS # (AUTO) 10.4 K/uL (1.8-7.7); NEUTROPHILS % (AUTO) 83.6 % (40.0-70.0); PLATELET COUNT (AUTO) 465 K/uL (130-430); RED BLOOD CELL COUNT(AUTO) 4.99 MIL/uL (4.2-6.2); RED CELL DISTRIBUTION WIDTH 16.1 % (9.0-15.0); WHITE BLOOD COUNT (AUTO) 12.5 K/uL (4.8-10.8)
[2016-12-14 07:00] LABS: ALBUMIN 2.9 g/dL (3.4-4.8); CALCIUM 8.7 mg/dL (8.4-11.0); CREATININE 0.52 mg/dL (0.55-1.30); POTASSIUM 3.3 mmol/L (3.5-5.1); TOTAL BILIRUBIN 0.2 mg/dL (0.0-1.0)
[2016-12-14] MEDS: cefTRIAXone 1 GM in D5W 50 ML IV SCH (09:13)
[2016-12-14] MEDS: FAMOTIDINE PF 20 MG/2 ML VIAL IVP SCH ×2 (09:13→20:16)
[2016-12-14] MEDS ORDERED: NALOXONE HCL 0.4 MG/ML AMP (NARCAN) ONE ×2 (10:24→15:55)
[2016-12-14] MEDS ORDERED: POTASSIUM CHLORIDE 20 MEQ/PKT PACKET PO ONE (10:45)
[2016-12-14] MEDS ORDERED: NALOXONE HCL 0.4 MG/ML AMP (NARCAN) IVP ONE ×2 (10:45→16:00)
[2016-12-14] MEDS ORDERED: POTASSIUM CHLORIDE 20 MEQ TAB.PRT.SR PO ONE (12:00)
[2016-12-14] MEDS ORDERED: MIDAZOLAM HCL 5 MG/5 ML VIAL IVP PRN (17:15)
[2016-12-14] MEDS: MIDAZOLAM HCL 2 MG/2 ML VIAL (VERSED) IVP PRN ×2 (20:17→21:20)
[2016-12-15] VITALS (28 sets, daily range): BP systolic 104–149
[2016-12-15] MEDS: MIDAZOLAM HCL 2 MG/2 ML VIAL (VERSED) IVP PRN ×4 (00:08→22:00)
[2016-12-15] MEDS: NITROGLYCERIN 1 INCH (GM) OINT. TP SCH ×5 (00:08→23:35)
[2016-12-15] MEDS: ALBUTEROL SULFATE 0.083% 2.5 MG/3 ML VIAL.NEB INH SCH ×4 (01:22→20:15)
[2016-12-15] MEDS: IPRATROPIUM BROM 0.5 MG/2.5 ML VIAL.NEB (ATROVENT) INH SCH ×4 (01:23→20:15)
[2016-12-15] MEDS: D5/0.45 NS 1,000 ML IV SCH ×2 (05:10→18:07)
[2016-12-15 06:31] LABS: BASOPHILS # (AUTO) 0.1 K/uL (0.0-0.2); BASOPHILS % (AUTO) 0.5 % (0.0-2.0); EOSINOPHILS # (AUTO) 0.3 K/uL (0.0-0.4); EOSINOPHILS % (AUTO) 2.4 % (0.0-4.0); HEMATOCRIT 35.3 % (36-48); HEMOGLOBIN 11.4 g/dL (12.0-16.0); LYMPHOCYTES # (AUTO) 2.7 K/uL (1.0-5.5); LYMPHOCYTES % (AUTO) 22.7 % (20.5-51.5); MEAN CORPUSCULAR HEMOGLOBIN 26 pg (27-31); MEAN CORPUSCULAR HGB CONC 32 % (32-36); MEAN CORPUSCULAR VOLUME 81 fL (79.0-98.0); MONOCYTES # (AUTO) 0.7 K/uL (0.0-1.0); MONOCYTES % (AUTO) 5.6 % (1.7-9.3); NEUTROPHILS % (AUTO) 68.8 % (40.0-70.0); PLATELET COUNT (AUTO) 439 K/uL (130-430); RED BLOOD CELL COUNT(AUTO) 4.34 MIL/uL (4.2-6.2); RED CELL DISTRIBUTION WIDTH 16.2 % (9.0-15.0); WHITE BLOOD COUNT (AUTO) 11.8 K/uL (4.8-10.8)
[2016-12-15 07:12] LABS: ALBUMIN 2.6 g/dL (3.4-4.8); CALCIUM 8.5 mg/dL (8.4-11.0); CREATININE 0.53 mg/dL (0.55-1.30); POTASSIUM 3.2 mmol/L (3.5-5.1); TOTAL BILIRUBIN 0.3 mg/dL (0.0-1.0)
[2016-12-15] MEDS ORDERED: POTASSIUM CHLORIDE 20 MEQ/PKT PACKET PO ONE (08:30)
[2016-12-15] MEDS: FAMOTIDINE PF 20 MG/2 ML VIAL IVP SCH ×2 (09:12→20:36)
[2016-12-15] MEDS: cefTRIAXone 1 GM in D5W 50 ML IV SCH (09:13)
[2016-12-15] MEDS: POTASSIUM CHLORIDE 40 MEQ in 0.45% NS 250 ML IV SCH ×2 (10:05→14:04)
[2016-12-15] MEDS ORDERED: hydrALAZINE HCL 20 MG/ML VIAL IVP PRN (11:00)
[2016-12-15] MEDS ORDERED: GABAPENTIN 300 MG CAPSULE PO ONE (12:00)
[2016-12-15] MEDS ORDERED: SUCCINYLCHOLINE CHLORIDE 20 MG/ML(QUELICIN) IVP ONE (15:00)
[2016-12-15] MEDS ORDERED: ETOMIDATE 20 MG/ 10 ML VIAL (AMIDATE) IVP ONE (15:00)
[2016-12-16] VITALS (22 sets, daily range): BP systolic 95–136
[2016-12-16] MEDS: ALBUTEROL SULFATE 0.083% 2.5 MG/3 ML VIAL.NEB INH SCH ×4 (01:00→20:04)
[2016-12-16] MEDS: IPRATROPIUM BROM 0.5 MG/2.5 ML VIAL.NEB (ATROVENT) INH SCH ×4 (01:00→20:04)
[2016-12-16] MEDS: MIDAZOLAM HCL 2 MG/2 ML VIAL (VERSED) IVP PRN (05:12)
[2016-12-16] MEDS: D5/0.45 NS 1,000 ML IV SCH (05:18)
[2016-12-16] MEDS: NITROGLYCERIN 1 INCH (GM) OINT. TP SCH ×3 (05:19→18:02)
[2016-12-16 07:35] LABS: ALBUMIN 2.5 g/dL (3.4-4.8); CALCIUM 8.3 mg/dL (8.4-11.0); CREATININE 0.52 mg/dL (0.55-1.30); POTASSIUM 3.7 mmol/L (3.5-5.1); TOTAL BILIRUBIN 0.2 mg/dL (0.0-1.0)
[2016-12-16 07:39] LABS: BASOPHILS % (AUTO) 0.3 % (0.0-2.0); EOSINOPHILS # (AUTO) 0.4 K/uL (0.0-0.4); EOSINOPHILS % (AUTO) 4.6 % (0.0-4.0); HEMOGLOBIN 10.4 g/dL (12.0-16.0); LYMPHOCYTES # (AUTO) 2.2 K/uL (1.0-5.5); MEAN CORPUSCULAR HEMOGLOBIN 27 pg (27-31); MEAN CORPUSCULAR HGB CONC 33 % (32-36); MEAN CORPUSCULAR VOLUME 82 fL (79.0-98.0); MONOCYTES # (AUTO) 0.6 K/uL (0.0-1.0); MONOCYTES % (AUTO) 6.7 % (1.7-9.3); NEUTROPHILS # (AUTO) 5.9 K/uL (1.8-7.7); NEUTROPHILS % (AUTO) 64.4 % (40.0-70.0); PLATELET COUNT (AUTO) 386 K/uL (130-430); RED BLOOD CELL COUNT(AUTO) 3.92 MIL/uL (4.2-6.2); RED CELL DISTRIBUTION WIDTH 16.6 % (9.0-15.0); WHITE BLOOD COUNT (AUTO) 9.1 K/uL (4.8-10.8)
[2016-12-16] MEDS: FAMOTIDINE PF 20 MG/2 ML VIAL IVP SCH ×2 (08:02→20:55)
[2016-12-16] MEDS: GABAPENTIN 300 MG CAPSULE PO SCH (08:02)
[2016-12-16] MEDS: HYDROcodone/ACETAMIN 5-325 MG TAB (NORCO/ VICODIN) PO PRN ×3 (09:47→18:02)
[2016-12-16] MEDS: BACLOFEN 10 MG TABLET PO SCH ×2 (14:06→20:55)
[2016-12-17] VITALS (7 sets, daily range): BP systolic 105–124
[2016-12-17] MEDS: NITROGLYCERIN 1 INCH (GM) OINT. TP SCH ×4 (00:25→17:53)
[2016-12-17] MEDS: HYDROcodone/ACETAMIN 5-325 MG TAB (NORCO/ VICODIN) PO PRN ×3 (00:37→09:51)
[2016-12-17] MEDS: IPRATROPIUM BROM 0.5 MG/2.5 ML VIAL.NEB (ATROVENT) INH SCH ×2 (00:54→07:53)
[2016-12-17] MEDS: ALBUTEROL SULFATE 0.083% 2.5 MG/3 ML VIAL.NEB INH SCH ×2 (00:54→07:53)
[2016-12-17] MEDS: D5/0.45 NS 1,000 ML IV SCH (05:42)
[2016-12-17] MEDS: GABAPENTIN 300 MG CAPSULE PO SCH (09:50)
[2016-12-17] MEDS: BACLOFEN 10 MG TABLET PO SCH ×3 (09:50→21:27)
[2016-12-17] MEDS: FAMOTIDINE PF 20 MG/2 ML VIAL IVP SCH ×2 (09:50→21:28)
[2016-12-17] MEDS ORDERED: LORazepam 2 MG/ML VIAL IVP ONE (23:15)
[2016-12-18] VITALS (7 sets, daily range): BP systolic 120–141
[2016-12-18] MEDS: NITROGLYCERIN 1 INCH (GM) OINT. TP SCH ×4 (00:54→17:53)
[2016-12-18] MEDS: HYDROcodone/ACETAMIN 5-325 MG TAB (NORCO/ VICODIN) PO PRN ×2 (05:53→23:02)
[2016-12-18] MEDS: GABAPENTIN 300 MG CAPSULE PO SCH (08:31)
[2016-12-18] MEDS: FAMOTIDINE PF 20 MG/2 ML VIAL IVP SCH ×2 (08:31→21:16)
[2016-12-18] MEDS: BACLOFEN 10 MG TABLET PO SCH ×3 (08:31→21:15)
[2016-12-19] VITALS (7 sets, daily range): BP systolic 104–134
[2016-12-19] MEDS: NITROGLYCERIN 1 INCH (GM) OINT. TP SCH ×4 (00:26→17:48)
[2016-12-19] MEDS ORDERED: ZOLPIDEM TARTRATE 5 MG TABLET PO ONE (00:45)
[2016-12-19] MEDS: FAMOTIDINE PF 20 MG/2 ML VIAL IVP SCH ×2 (08:29→21:26)
[2016-12-19] MEDS: HYDROcodone/ACETAMIN 5-325 MG TAB (NORCO/ VICODIN) PO PRN ×3 (08:34→21:30)
[2016-12-19] MEDS: BACLOFEN 10 MG TABLET PO SCH ×3 (08:39→21:26)
[2016-12-19] MEDS: GABAPENTIN 300 MG CAPSULE PO SCH (08:40)
[2016-12-19] MEDS: MORPHINE 2 MG/ML INJ. SYRINGE IVP PRN ×2 (09:56→15:50)
[2016-12-20] VITALS (7 sets, daily range): BP systolic 100–132
[2016-12-20] MEDS: MORPHINE 2 MG/ML INJ. SYRINGE IVP PRN ×4 (00:19→19:39)
[2016-12-20] MEDS: NITROGLYCERIN 1 INCH (GM) OINT. TP SCH ×4 (00:19→18:00)
[2016-12-20] MEDS: GABAPENTIN 300 MG CAPSULE PO SCH (09:49)
[2016-12-20] MEDS: BACLOFEN 10 MG TABLET PO SCH ×2 (09:54→17:33)
[2016-12-20] MEDS: FAMOTIDINE PF 20 MG/2 ML VIAL IVP SCH (09:55)
== END 2016-12-20 20:45 | disposition home health service (06) | DRG 917 ==
LOC: SED 13:53 → SIC 16:33 → STU 12-16 18:45 → SMU 12-18 13:00
PROC: 0BH17EZ Insertion of Endotracheal Airway into Trachea, Via Natural or Artificial Opening (ICD-10-PCS; principal; 2016-12-13)
PROC: 5A1945Z Respiratory Ventilation, 24-96 Consecutive Hours (ICD-10-PCS; 2016-12-13)
PROC: 5A09357 Assistance with Respiratory Ventilation, Less than 24 Consecutive Hours, Continuous Positive Airway Pressure (ICD-10-PCS; 2016-12-15)
DX: T48.0X1A Poisoning by oxytocic drugs, accidental (unintentional), initial encounter (principal); J96.00 Acute respiratory failure, unspecified whether with hypoxia or hypercapnia; J69.0 Pneumonitis due to inhalation of food and vomit; N39.0 Urinary tract infection, site not specified; G35 Multiple sclerosis; F12.10 Cannabis abuse, uncomplicated; F15.10 Other stimulant abuse, uncomplicated; F32.9 Major depressive disorder, single episode, unspecified; I10 Essential (primary) hypertension; G89.29 Other chronic pain; T50.991A Poisoning by other drugs, medicaments and biological substances, accidental (unintentional), initial encounter; M19.90 Unspecified osteoarthritis, unspecified site; F03.90 Unspecified dementia, unspecified severity, without behavioral disturbance, psychotic disturbance, mood disturbance, and anxiety; F41.9 Anxiety disorder, unspecified; B96.4 Proteus (mirabilis) (morganii) as the cause of diseases classified elsewhere; N31.9 Neuromuscular dysfunction of bladder, unspecified; Z53.29 Procedure and treatment not carried out because of patient's decision for other reasons; Z16.24 Resistance to multiple antibiotics; Z91.013 Allergy to seafood; Z79.899 Other long term (current) drug therapy; Y92.89 Other specified places as the place of occurrence of the external cause; Z78.9 Other specified health status; Z87.440 Personal history of urinary (tract) infections; Z87.891 Personal history of nicotine dependence; Z74.01 Bed confinement status; Z90.710 Acquired absence of both cervix and uterus; Z90.722 Acquired absence of ovaries, bilateral; Z89.422 Acquired absence of other left toe(s)
CPT/HCPCS: 36415; 36600; 70450-TC; 71010; 80053; 80307; 81000-TC; 82140-TC; 82803-TC; 84484; 85025; 85610-TC; 85730-TC; 87070-TC; 87081; 87086; 87186-TC; 87205-TC; 94002; 94003; 94640; 94760; 96365; 97110-GP; 97530-GP; 99285; G0480; G0481; G0482; J0330; J0696; J2060; J2270; J2310; J3465; J3480; J3490; J7060